=== PATIENT | male | born 1990 | race African-American/Black ===

== ENCOUNTER 2022-05-25 21:31 | Emergency (ER) | payer MEDICAID ==
[~2022-05-25] VITALS: Ht 177.8 cm; Wt 128.0 kg
[2022-05-25 22:17] VITALS: BP 146/85
[2022-05-25 22:42] LABS: Urine Bacteria NONE SEEN /hpf (None Seen); Urine Blood 1+ /uL (Negative); Urine Mucus FEW (None Seen); Urine Specific Gravity 1.043 (1.001-1.035); Urine WBC 13 /hpf (0 - 3)
[2022-05-25] MEDS ORDERED: KETOROLAC TROMETH 60MG/2ML VIAL IM ONE (22:45)
[2022-05-26] MEDS ORDERED: levoFLOXacin 250 MG TAB PO ONE (00:45)
[2022-05-26] MEDS ORDERED: IBUP800T26 PO (01:23)
[2022-05-26] MEDS ORDERED: LEVO750T8 PO (01:23)
== END 2022-05-26 02:59 | disposition home or self-care (01) ==
LOC: ER 21:31
DX: N39.0 Urinary tract infection, site not specified (principal); F17.210 Nicotine dependence, cigarettes, uncomplicated; Z90.49 Acquired absence of other specified parts of digestive tract
CPT/HCPCS: 81001